=== PATIENT | male | born 1970 | race African-American/Black ===

== ENCOUNTER → 2021-12-05 | Day surgery (SDC) | payer OTHER ==
[~2021-12-05] MED LIST: Heparin 1,000 UNITS/ML VIAL ONE
== END ==
LOC: SPEC 09:13
PROVIDERS: ATTEND Internal Medicine
PROC: 02HV33Z Insertion of Infusion Device into Superior Vena Cava, Percutaneous Approach (ICD-10-PCS; principal; 2021-12-05)
PROC: B518ZZA Fluoroscopy of Superior Vena Cava, Guidance (ICD-10-PCS; principal; 2021-12-05)
DX: B99.9 Unspecified infectious disease (principal)
CPT/HCPCS: 36569; C1751; J1644